=== PATIENT | female | born 1950 | race Caucasian/White ===

== ENCOUNTER 2017-07-13 12:16 | Emergency (ER) | payer MEDICAID, OTHER ==
[~2017-07-13] VITALS: Ht 149.9 cm; Wt 68.2 kg
[~2017-07-13 12:16] MED LIST: ARIP10TA8 PO; DSS100 PO; FLUO-191 PO; LEVO50 PO; METF500T4 PO; METO50 PO; OMEP20 PO
[2017-07-13] MEDS ORDERED: MIRT30 PO (12:28)
[2017-07-13] MEDS ORDERED: HYDR-4031 PO (12:28)
[2017-07-13 12:32] LABS: GLUCOSE,POINT OF CARE 124 MG/DL (70-110)
[2017-07-13] MEDS ORDERED: METOCLOPRAMIDE HCL 5 MG/ML 2 ML VIAL IVP ONE (12:45)
[2017-07-13] MEDS ORDERED: SODIUM CHLORIDE 0.9% 1,000 ML IV ONE (12:45)
[2017-07-13] MEDS ORDERED: KETOROLAC TROMETHAMINE 30 MG/ML VIAL IVP ONE (12:45)
[2017-07-13 13:05] LABS: BASOPHILS % (AUTO) 0.2 % (0.0-2.0); EOSINOPHILS % (AUTO) 1.1 % (1.0-6.0); HEMATOCRIT 34.5 % (36-46); HEMOGLOBIN 11.5 g/dL (12.0-16.0); LYMPHOCYTES # (AUTO) 1.6 K/uL (1.0-4.8); LYMPHOCYTES % (AUTO) 20.9 % (22.0-44.0); MEAN CORPUSCULAR HEMOGLOBIN 28.4 pg (26.0-34.0); MEAN CORPUSCULAR HGB CONC 33.2 G/dL (31.0-37.0); MEAN CORPUSCULAR VOLUME 85 fL (80-100); MONOCYTES # (AUTO) 0.6 K/uL (0.1-1.0); MONOCYTES % (AUTO) 8.3 % (2.0-9.0); NEUTROPHILS # (AUTO) 5.4 K/uL (1.8-7.7); NEUTROPHILS % (AUTO) 69.5 % (40.0-70.0); PLATELET COUNT (AUTO) 337 K/uL (150-450); RED BLOOD CELL COUNT(AUTO) 4.03 MIL/uL (4.00-5.20); RED CELL DISTRIBUTION WIDTH 14.6 % (11.5-14.5); WHITE BLOOD COUNT (AUTO) 7.8 K/uL (4.5-11.0)
[2017-07-13 13:14] LABS: ANION GAP 9 mmol/L (8-16); CALCIUM, TOTAL 8.9 mg/dL (8.8-10.5); CARBON DIOXIDE 26 mmol/L (22-29); CHLORIDE 106 mmol/L (98-107); CREATININE 0.83 mg/dL (0.60-1.30); GLOMERULAR FILTR. RATE CALC > 60 mL/min (>60); POTASSIUM 3.5 mmol/L (3.5-5.1); SODIUM SERUM 141 mmol/L (136-145); UREA NITROGEN, BLOOD 10 mg/dL (7-18)
[2017-07-13 13:18] LABS: ALANINE AMINOTRANSFERASE 27 U/L (12-78); ALBUMIN 3.5 g/dL (3.4-5.0); ASPARTATE AMINOTRANSFERASE 24 U/L (15-37); BILIRUBIN,TOTAL 0.3 mg/dL (0.1-1.0); TOTAL PROTEIN, SERUM 7.2 g/dL (6.4-8.2)
[2017-07-13 14:11] LABS: APPEARANCE,URINE CLOUDY (CLEAR); GLUCOSE, URINE (UA) NEGATIVE (NEGATIVE); KETONES,URINE NEGATIVE (NEGATIVE); LEUKOCYTE ESTERASE ,URINE MODERATE (NEGATIVE); OCCULT BLOOD,URINE SMALL (NEGATIVE); PH,URINE 6.5 (5.0-8.0); PROTEIN,URINE POS 1+ (NEGATIVE)
[2017-07-13 14:16] LABS: ADD UA MICROSCOPIC YES
[2017-07-13 14:19] LABS: RBC,URINE 0-2 /HPF (0-2); RENAL EPITHELIAL CELLS,URINE Rare /LPF (None Seen); SQUAMOUS EPITHELIAL CELL,UR Few /LPF (None Seen)
[2017-07-13 14:27] VITALS: BP 130/72
== END 2017-07-13 15:43 | disposition home or self-care (01) ==
LOC: EMS 12:18
DX: N39.0 Urinary tract infection, site not specified (principal); R51 Headache; E11.9 Type 2 diabetes mellitus without complications; E78.00 Pure hypercholesterolemia, unspecified
CPT/HCPCS: 36415; 80053; 80307; 81001; 82962; 85025; 87086; 96361; 96374; 96375; 99284; J1885; J2765; J7030

== ENCOUNTER 2017-07-22 20:59 | Emergency (ER) | payer OTHER ==
[~2017-07-22] VITALS: Ht 157.5 cm; Wt 77.3 kg
[~2017-07-22 20:59] MED LIST changes: -DSS100 PO; +HYDR-4031 PO; +MIRT30 PO; -OMEP20 PO
[2017-07-22 21:04] VITALS: BP 115/71
[2017-07-22 21:18] LABS: GLUCOSE,POINT OF CARE 143 MG/DL (70-110)
[2017-07-22 21:30] LABS: BASOPHILS # (AUTO) 0.01 K/uL (0.00-0.20); BASOPHILS % (AUTO) 0.2 % (0.0-2.0); EOSINOPHILS # (AUTO) 0.21 K/uL (0.00-0.70); EOSINOPHILS % (AUTO) 2.94 % (1.0-6.0); HEMATOCRIT 34.5 % (36-46); HEMOGLOBIN 11.5 g/dL (12.0-16.0); LYMPHOCYTES # (AUTO) 1.9 K/uL (1.0-4.8); LYMPHOCYTES % (AUTO) 26.9 % (22.0-44.0); MEAN CORPUSCULAR HEMOGLOBIN 28.5 pg (26.0-34.0); MEAN CORPUSCULAR HGB CONC 33.3 G/dL (31.0-37.0); MEAN CORPUSCULAR VOLUME 86 fL (80-100); MONOCYTES # (AUTO) 0.6 K/uL (0.1-1.0); MONOCYTES % (AUTO) 7.8 % (2.0-9.0); NEUTROPHILS # (AUTO) 4.5 K/uL (1.8-7.7); NEUTROPHILS % (AUTO) 62.3 % (40.0-70.0); PLATELET COUNT (AUTO) 291 K/uL (150-450); RED BLOOD CELL COUNT(AUTO) 4.02 MIL/uL (4.00-5.20); RED CELL DISTRIBUTION WIDTH 14.4 % (11.5-14.5); WHITE BLOOD COUNT (AUTO) 7.2 K/uL (4.5-11.0)
[2017-07-22 21:41] LABS: ANION GAP 9 mmol/L (8-16); CALCIUM, TOTAL 8.7 mg/dL (8.8-10.5); CARBON DIOXIDE 24 mmol/L (22-29); CHLORIDE 108 mmol/L (98-107); GLOMERULAR FILTR. RATE CALC > 60 mL/min (>60); POTASSIUM 3.5 mmol/L (3.5-5.1); SODIUM SERUM 141 mmol/L (136-145); UREA NITROGEN, BLOOD 11 mg/dL (7-18)
[2017-07-22 21:48] LABS: ALANINE AMINOTRANSFERASE 28 U/L (12-78); ALBUMIN 3.6 g/dL (3.4-5.0); ASPARTATE AMINOTRANSFERASE 26 U/L (15-37); BILIRUBIN,TOTAL 0.2 mg/dL (0.1-1.0); TOTAL PROTEIN, SERUM 7.6 g/dL (6.4-8.2)
[2017-07-22 21:55] LABS: APPEARANCE,URINE CLOUDY (CLEAR); GLUCOSE, URINE (UA) NEGATIVE (NEGATIVE); KETONES,URINE NEGATIVE (NEGATIVE); LEUKOCYTE ESTERASE ,URINE MODERATE (NEGATIVE); OCCULT BLOOD,URINE LARGE (NEGATIVE); PROTEIN,URINE POS 1+ (NEGATIVE)
[2017-07-22 22:05] LABS: ADD UA MICROSCOPIC YES
[2017-07-22 22:30] LABS: SQUAMOUS EPITHELIAL CELL,UR Rare /LPF (None Seen)
== END 2017-07-22 22:40 | disposition home or self-care (01) ==
LOC: EMS 21:01
DX: F25.9 Schizoaffective disorder, unspecified (principal); N39.0 Urinary tract infection, site not specified; G47.00 Insomnia, unspecified; F31.9 Bipolar disorder, unspecified; E11.9 Type 2 diabetes mellitus without complications; E78.00 Pure hypercholesterolemia, unspecified; F41.9 Anxiety disorder, unspecified
CPT/HCPCS: 36415; 80053; 80307; 81001; 82962; 85025; 87086; 99284; G0480

== ENCOUNTER 2018-01-12 18:57 | Emergency (ER) | payer OTHER ==
[~2018-01-12] VITALS: Ht 149.9 cm; Wt 72.7 kg
[2018-01-12 19:18] LABS: GLUCOSE,POINT OF CARE 93 MG/DL (70-110)
[2018-01-12] MEDS ORDERED: METO-558 PO (19:18)
[2018-01-12] MEDS ORDERED: PANT40TA25 PO (19:18)
[2018-01-12] MEDS ORDERED: VITAD1000 PO (19:18)
[2018-01-12] MEDS ORDERED: HYDR-4031 PO (19:18)
[2018-01-12] MEDS ORDERED: QUET200T PO (19:18)
[2018-01-12] MEDS ORDERED: DONE5TAB5 PO (19:18)
[2018-01-12 20:31] LABS: BASOPHILS % (AUTO) 1.2 % (0.0-2.0); EOSINOPHILS % (AUTO) 1.8 % (1.0-6.0); HEMATOCRIT 37.2 % (36-46); HEMOGLOBIN 12.4 g/dL (12.0-16.0); LYMPHOCYTES # (AUTO) 2.4 K/uL (1.0-4.8); LYMPHOCYTES % (AUTO) 24.4 % (22.0-44.0); MEAN CORPUSCULAR HEMOGLOBIN 28.1 pg (26.0-34.0); MEAN CORPUSCULAR HGB CONC 33.3 G/dL (31.0-37.0); MEAN CORPUSCULAR VOLUME 85 fL (80-100); MONOCYTES # (AUTO) 0.9 K/uL (0.1-1.0); MONOCYTES % (AUTO) 8.8 % (2.0-9.0); NEUTROPHILS # (AUTO) 6.3 K/uL (1.8-7.7); NEUTROPHILS % (AUTO) 63.8 % (40.0-70.0); PLATELET COUNT (AUTO) 323 K/uL (150-450); RED BLOOD CELL COUNT(AUTO) 4.39 MIL/uL (4.00-5.20); RED CELL DISTRIBUTION WIDTH 14.4 % (11.5-14.5)
[2018-01-12 20:38] LABS: ANION GAP 6 mmol/L (8-16); CALCIUM, TOTAL 9.1 mg/dL (8.8-10.5); CARBON DIOXIDE 27 mmol/L (22-29); CHLORIDE 105 mmol/L (98-107); CREATININE 0.67 mg/dL (0.60-1.30); GLOMERULAR FILTR. RATE CALC > 60 mL/min (>60); GLUCOSE,RANDOM 94 mg/dL (70-110); SODIUM SERUM 138 mmol/L (136-145); UREA NITROGEN, BLOOD 10 mg/dL (7-18)
[2018-01-12 20:42] LABS: ALANINE AMINOTRANSFERASE 34 U/L (12-78); ALBUMIN 3.8 g/dL (3.4-5.0); ALKALINE PHOSPHATASE 80 U/L (46-116); ASPARTATE AMINOTRANSFERASE 30 U/L (15-37); BILIRUBIN,TOTAL 0.4 mg/dL (0.1-1.0)
[2018-01-12] MEDS ORDERED: LORazepam 2 MG/ML VIAL IM ONE (21:15)
[2018-01-12] MEDS ORDERED: DiphenhydrAMINE HCL 50 MG/ML VIAL IM ONE (21:15)
[2018-01-12] MEDS ORDERED: HALOPERIDOL LACTATE 5 MG/ML VIAL IM ONE (21:15)
[2018-01-13 01:25] VITALS: BP 141/78
[2018-01-17] MEDS ORDERED: ARIP400S3 IM (13:48)
== END 2018-01-13 01:36 | disposition home or self-care (01) ==
LOC: MERGE 18:58 → EMS 18:58
DX: F25.9 Schizoaffective disorder, unspecified (principal); R51 Headache; F32.9 Major depressive disorder, single episode, unspecified; E11.9 Type 2 diabetes mellitus without complications; I10 Essential (primary) hypertension; Z88.0 Allergy status to penicillin
CPT/HCPCS: 36415; 80053; 82962; 85025; 96372; 99285; G0480; J1200; J1630; J2060; 99284

== ENCOUNTER 2018-02-24 10:28 | Inpatient (IN) | payer MEDICAID, OTHER ==
[~2018-02-24] VITALS: Ht 147.3 cm; Wt 71.4 kg
[~2018-02-24 10:28] MED LIST changes: -ARIP10TA8 PO; +BUSP10TA23 PO; -FLUO-191 PO; -HYDR-4031 PO; -METF500T4 PO; +METO-558 PO; -METO50 PO; +MIRT15 PO; -MIRT30 PO; +OLAN10TA22 PO; +TRAZ-147 PO; +TRAZ150 PO
[2018-02-24 10:47] LABS: GLUCOSE,POINT OF CARE 83 MG/DL (70-110)
[2018-02-24 11:22] LABS: EOSINOPHILS % (AUTO) 0.6 % (1.0-6.0); HEMATOCRIT 38.4 % (36-46); LYMPHOCYTES # (AUTO) 1.8 K/uL (1.0-4.8); MEAN CORPUSCULAR HEMOGLOBIN 28.4 pg (26.0-34.0); MEAN CORPUSCULAR HGB CONC 33.9 G/dL (31.0-37.0); MEAN CORPUSCULAR VOLUME 84 fL (80-100); MONOCYTES # (AUTO) 0.4 K/uL (0.1-1.0); MONOCYTES % (AUTO) 5.6 % (2.0-9.0); NEUTROPHILS # (AUTO) 4.5 K/uL (1.8-7.7); NEUTROPHILS % (AUTO) 65.8 % (40.0-70.0); PLATELET COUNT (AUTO) 311 K/uL (150-450); RED BLOOD CELL COUNT(AUTO) 4.59 MIL/uL (4.00-5.20); RED CELL DISTRIBUTION WIDTH 13.9 % (11.5-14.5)
[2018-02-24 11:38] LABS: AMPHET/METH SCREEN,URINE NEGATIVE (NEGATIVE); BARBITURATE SCREEN, URINE NEGATIVE (NEGATIVE); BENZODIAZEPINES SCREEN,URINE NEGATIVE (NEGATIVE); CANNABINOID SCREEN,URINE NEGATIVE (NEGATIVE); COCAINE SCREEN,URINE NEGATIVE (NEGATIVE); METHADONE SCREEN, URINE NEGATIVE (NEGATIVE); OPIATE SCREEN,URINE NEGATIVE (NEGATIVE)
[2018-02-24 11:39] LABS: PHENCYCLIDINE SCREEN,URINE NEGATIVE (NEGATIVE)
[2018-02-24 11:39] LABS: ANION GAP 6 mmol/L (8-16); CALCIUM, TOTAL 8.9 mg/dL (8.8-10.5); CARBON DIOXIDE 28 mmol/L (22-29); CHLORIDE 105 mmol/L (98-107); CREATININE 0.68 mg/dL (0.60-1.30); GLOMERULAR FILTR. RATE CALC > 60 mL/min (>60); GLUCOSE,RANDOM 85 mg/dL (70-110); POTASSIUM 4.2 mmol/L (3.5-5.1); SODIUM SERUM 139 mmol/L (136-145); UREA NITROGEN, BLOOD 12 mg/dL (7-18)
[2018-02-24 11:42] LABS: APPEARANCE,URINE CLOUDY (CLEAR); BILIRUBIN,URINE NEGATIVE (NEGATIVE); GLUCOSE, URINE (UA) NEGATIVE (NEGATIVE); KETONES,URINE NEGATIVE (NEGATIVE); LEUKOCYTE ESTERASE ,URINE SMALL (NEGATIVE); NITRATE,URINE NEGATIVE (NEGATIVE); OCCULT BLOOD,URINE LARGE (NEGATIVE); PH,URINE 6.5 (5.0-8.0); PROTEIN,URINE POS 1+ (NEGATIVE); UROBILINOGEN,URINE 0.2 mg/dL (<=1.0)
[2018-02-24 11:45] LABS: ALANINE AMINOTRANSFERASE 45 U/L (12-78); ALBUMIN 3.5 g/dL (3.4-5.0); ALKALINE PHOSPHATASE 93 U/L (46-116); ASPARTATE AMINOTRANSFERASE 39 U/L (15-37); BILIRUBIN,TOTAL 0.3 mg/dL (0.1-1.0); LIPASE 188 U/L (73-393); TOTAL PROTEIN, SERUM 7.4 g/dL (6.4-8.2)
[2018-02-24 11:47] LABS: BACTERIA,URINE Rare /HPF (None Seen); CALCIUM OXALATE CRYSTALS,UR Few /LPF (None Seen); RENAL EPITHELIAL CELLS,URINE Few /LPF (None Seen); SQUAMOUS EPITHELIAL CELL,UR Few /LPF (None Seen); TRANSITIONAL EPI CELLS,URINE Few /LPF (None Seen)
[2018-02-24] MEDS ORDERED: PROMETHAZINE HCL 25 MG TABLET PO PRN (16:45)
[2018-02-24] MEDS ORDERED: HydrOXYzine PAMOATE 50 MG CAPSULE PO PRN (16:45)
[2018-02-24] MEDS ORDERED: GuaiFENesin/D-METHORPHAN [SUGAR-FREE] 200-20MG/10 ML SYRUP UDCUP PO PRN (16:45)
[2018-02-24] MEDS ORDERED: LOPERAMIDE HCL 2 MG CAPSULE PO PRN (16:45)
[2018-02-24] MEDS ORDERED: MAGNESIUM HYDROXIDE SUSPENSION 30 ML UDCUP PO PRN (16:45)
[2018-02-24] MEDS ORDERED: MIRTAZAPINE 15 MG TABLET PO SCH (21:00)
[2018-02-24 21:35] VITALS: BP 140/85
[2018-02-24] MEDS: BusPIRone HCL 5 MG TABLET PO SCH (21:35)
[2018-02-24] MEDS: THIAMINE HCL 100 MG TABLET PO SCH (21:35)
[2018-02-24] MEDS: OLANZapine 10 MG RAPDIS TABLET PO SCH (21:35)
[2018-02-24] MEDS ORDERED: DEXTROSE 50%-WATER 25 GM/50 ML SYG IVP PRN (23:30)
[2018-02-25 05:48] LABS: GLUCOMETER DEV NAME(LOC) 3EC; GLUCOSE,POINT OF CARE 97 MG/DL (70-110)
[2018-02-25] MEDS: LEVOTHYROXINE SODIUM 50 MCG TABLET PO SCH (06:06)
[2018-02-25 06:34] LABS: BASOPHILS % (AUTO) 1.3 % (0.0-2.0); EOSINOPHILS % (AUTO) 2.2 % (1.0-6.0); HEMATOCRIT 35.3 % (36-46); HEMOGLOBIN 11.9 g/dL (12.0-16.0); LYMPHOCYTES # (AUTO) 1.7 K/uL (1.0-4.8); LYMPHOCYTES % (AUTO) 28.8 % (22.0-44.0); MEAN CORPUSCULAR HEMOGLOBIN 28.1 pg (26.0-34.0); MEAN CORPUSCULAR HGB CONC 33.7 G/dL (31.0-37.0); MEAN CORPUSCULAR VOLUME 84 fL (80-100); MONOCYTES # (AUTO) 0.4 K/uL (0.1-1.0); MONOCYTES % (AUTO) 6.5 % (2.0-9.0); NEUTROPHILS # (AUTO) 3.6 K/uL (1.8-7.7); NEUTROPHILS % (AUTO) 61.2 % (40.0-70.0); PLATELET COUNT (AUTO) 293 K/uL (150-450); RED BLOOD CELL COUNT(AUTO) 4.23 MIL/uL (4.00-5.20); RED CELL DISTRIBUTION WIDTH 13.9 % (11.5-14.5)
[2018-02-25 07:15] LABS: HEMOGLOBIN A1C 5.9 % (4.5-6.2)
[2018-02-25 07:29] LABS: ALANINE AMINOTRANSFERASE 36 U/L (12-78); ALBUMIN 3.4 g/dL (3.4-5.0); ALKALINE PHOSPHATASE 78 U/L (46-116); ANION GAP 10 mmol/L (8-16); ASPARTATE AMINOTRANSFERASE 26 U/L (15-37); BILIRUBIN,TOTAL 0.4 mg/dL (0.1-1.0); CALCIUM, TOTAL 8.6 mg/dL (8.8-10.5); CARBON DIOXIDE 25 mmol/L (22-29); CHLORIDE 106 mmol/L (98-107); CHOL/HDL RATIO 2.6 (3.9-5.7); CHOLESTEROL 121 mg/dL (131-200); CREATININE 0.76 mg/dL (0.60-1.30); FREE T4 (FREE THYROXINE) 1.16 ng/dL (0.76-1.46); GLOMERULAR FILTR. RATE CALC > 60 mL/min (>60); GLUCOSE,RANDOM 106 mg/dL (70-110); HDL CHOLESTEROL 47 mg/dL (40-60); LDL CHOL (CALC.) 53 mg/dL (0-130); POTASSIUM 3.7 mmol/L (3.5-5.1); SODIUM SERUM 141 mmol/L (136-145); THYROID STIMULATING HORMONE 2.87 uIU/mL (0.36-3.74); TOTAL PROTEIN, SERUM 7.5 g/dL (6.4-8.2); TRIGLYCERIDES 104 mg/dL (15-150); UREA NITROGEN, BLOOD 17 mg/dL (7-18)
[2018-02-25 09:29] VITALS: BP 157/73
[2018-02-25] MEDS: BusPIRone HCL 5 MG TABLET PO SCH (09:34)
[2018-02-25] MEDS: OLANZapine 5 MG RAPDIS TABLET PO PRN (09:34)
[2018-02-25] MEDS: THIAMINE HCL 100 MG TABLET PO SCH ×2 (09:34→16:26)
[2018-02-25] MEDS: MULTIVITAMINS WITH MINERALS, THERAPEUTIC TABLET PO SCH (09:34)
[2018-02-25] MEDS: FLUoxetine HCL 20 MG CAPSULE PO SCH (09:34)
[2018-02-25] MEDS: FOLIC ACID 1 MG TABLET PO SCH (09:35)
[2018-02-25] MEDS: METOPROLOL SUCCINATE 50 MG ER TABLET PO SCH ×2 (09:35→16:26)
[2018-02-25 12:02] LABS: GLUCOMETER DEV NAME(LOC) 3EI B; GLUCOSE,POINT OF CARE 76 MG/DL (70-110)
[2018-02-25] MEDS: CIPROFLOXACIN HCL 250 MG TABLET PO SCH (16:26)
[2018-02-25 16:32] LABS: GLUCOMETER DEV NAME(LOC) 3EI B; GLUCOSE,POINT OF CARE 111 MG/DL (70-110)
[2018-02-25 17:14] VITALS: BP 156/79
[2018-02-25 19:45] VITALS: BP 147/71
[2018-02-25] MEDS: ACETAMINOPHEN 325 MG TABLET PO PRN (19:50)
[2018-02-25] MEDS: OLANZapine 10 MG RAPDIS TABLET PO SCH (20:26)
[2018-02-25 20:39] LABS: GLUCOMETER DEV NAME(LOC) 3EI B; GLUCOSE,POINT OF CARE 102 MG/DL (70-110)
[2018-02-25 20:45] VITALS: BP 139/77
[2018-02-25] MEDS: MIRTAZAPINE 15 MG TABLET PO SCH (20:56)
[2018-02-26 01:00] VITALS: BP 141/59
[2018-02-26] MEDS: LORazepam 2 MG TABLET PO PRN (01:12)
[2018-02-26] MEDS: ZOLPIDEM TARTRATE 10 MG TABLET PO PRN (01:12)
[2018-02-26 05:52] LABS: GLUCOMETER DEV NAME(LOC) 3EI B; GLUCOSE,POINT OF CARE 105 MG/DL (70-110)
[2018-02-26] MEDS: LEVOTHYROXINE SODIUM 50 MCG TABLET PO SCH (06:56)
[2018-02-26] MEDS: FOLIC ACID 1 MG TABLET PO SCH (08:09)
[2018-02-26] MEDS: CIPROFLOXACIN HCL 250 MG TABLET PO SCH ×2 (08:09→16:34)
[2018-02-26] MEDS: THIAMINE HCL 100 MG TABLET PO SCH ×2 (08:09→16:34)
[2018-02-26] MEDS: FLUoxetine HCL 20 MG CAPSULE PO SCH (08:10)
[2018-02-26] MEDS: METOPROLOL SUCCINATE 50 MG ER TABLET PO SCH ×2 (08:10→16:34)
[2018-02-26] MEDS: MULTIVITAMINS WITH MINERALS, THERAPEUTIC TABLET PO SCH (08:10)
[2018-02-26 08:35] VITALS: BP 137/72
[2018-02-26] MEDS: MAG HYDROX/AL HYDROX/SIMETH ES 30 ML SUSPENSION UDCUP PO PRN (10:37)
[2018-02-26 11:33] LABS: GLUCOMETER DEV NAME(LOC) 3EI B; GLUCOSE,POINT OF CARE 110 MG/DL (70-110)
[2018-02-26 17:03] LABS: GLUCOMETER DEV NAME(LOC) 3EI B; GLUCOSE,POINT OF CARE 130 MG/DL (70-110)
[2018-02-26] MEDS: OLANZapine 10 MG RAPDIS TABLET PO SCH (20:08)
[2018-02-26] MEDS: MIRTAZAPINE 15 MG TABLET PO SCH (20:08)
[2018-02-26] MEDS: INSULIN LISPRO 100 UNITS/ML SQ PRN (21:21)
[2018-02-26 21:27] LABS: GLUCOMETER DEV NAME(LOC) 3EI B; GLUCOSE,POINT OF CARE 148 MG/DL (70-110)
[2018-02-27 00:45] VITALS: BP 144/88
[2018-02-27] MEDS: ZOLPIDEM TARTRATE 10 MG TABLET PO PRN (00:59)
[2018-02-27] MEDS: LORazepam 2 MG TABLET PO PRN (00:59)
[2018-02-27 06:18] LABS: GLUCOMETER DEV NAME(LOC) 3EI B; GLUCOSE,POINT OF CARE 110 MG/DL (70-110)
[2018-02-27] MEDS: LEVOTHYROXINE SODIUM 50 MCG TABLET PO SCH (07:02)
[2018-02-27 07:09] LABS: % IRON SATURATION 8.8 % (22-44)
[2018-02-27] MEDS: FLUoxetine HCL 20 MG CAPSULE PO SCH (08:36)
[2018-02-27] MEDS: MULTIVITAMINS WITH IRON TABLET PO SCH (08:36)
[2018-02-27] MEDS: FOLIC ACID 1 MG TABLET PO SCH (08:36)
[2018-02-27] MEDS: THIAMINE HCL 100 MG TABLET PO SCH ×2 (08:36→17:48)
[2018-02-27] MEDS: METOPROLOL SUCCINATE 50 MG ER TABLET PO SCH ×2 (08:36→17:48)
[2018-02-27 10:14] VITALS: BP 131/73
[2018-02-27 11:43] LABS: GLUCOMETER DEV NAME(LOC) 3EI B; GLUCOSE,POINT OF CARE 50 MG/DL (70-110)
[2018-02-27 17:17] LABS: GLUCOMETER DEV NAME(LOC) 3EI B; GLUCOSE,POINT OF CARE 69 MG/DL (70-110)
[2018-02-27 19:49] VITALS: BP 119/79
[2018-02-27] MEDS: MIRTAZAPINE 15 MG TABLET PO SCH (21:18)
[2018-02-27] MEDS: OLANZapine 10 MG RAPDIS TABLET PO SCH (21:18)
[2018-02-27 22:52] LABS: GLUCOMETER DEV NAME(LOC) 3EI B; GLUCOSE,POINT OF CARE 136 MG/DL (70-110)
[2018-02-28 00:40] VITALS: BP 135/76
[2018-02-28] MEDS: LORazepam 2 MG TABLET PO PRN (00:48)
[2018-02-28] MEDS: ZOLPIDEM TARTRATE 10 MG TABLET PO PRN (00:48)
[2018-02-28 05:32] LABS: GLUCOMETER DEV NAME(LOC) 3EI B; GLUCOSE,POINT OF CARE 91 MG/DL (70-110)
[2018-02-28] MEDS: LEVOTHYROXINE SODIUM 50 MCG TABLET PO SCH (06:52)
[2018-02-28] MEDS: INSULIN LISPRO 100 UNITS/ML SQ PRN (07:03)
[2018-02-28] MEDS: MULTIVITAMINS WITH IRON TABLET PO SCH (08:20)
[2018-02-28] MEDS: METOPROLOL SUCCINATE 50 MG ER TABLET PO SCH ×2 (08:20→16:19)
[2018-02-28] MEDS: FLUoxetine HCL 20 MG CAPSULE PO SCH (08:20)
[2018-02-28] MEDS: THIAMINE HCL 100 MG TABLET PO SCH ×2 (08:20→16:19)
[2018-02-28] MEDS: FOLIC ACID 1 MG TABLET PO SCH (08:21)
[2018-02-28 10:31] VITALS: BP 160/75
[2018-02-28 11:22] LABS: GLUCOMETER DEV NAME(LOC) 3EI B; GLUCOSE,POINT OF CARE 76 MG/DL (70-110)
[2018-02-28 16:28] VITALS: BP 135/73
[2018-02-28] MEDS ORDERED: OLANZapine 5 MG RAPDIS TABLET PO SCH (21:00)
[2018-02-28] MEDS: MIRTAZAPINE 15 MG TABLET PO SCH (21:40)
[2018-03-01 01:00] VITALS: BP 127/77
[2018-03-01] MEDS: ZOLPIDEM TARTRATE 10 MG TABLET PO PRN ×2 (02:54→22:03)
[2018-03-01] MEDS: OLANZapine 5 MG RAPDIS TABLET PO PRN (02:54)
[2018-03-01] MEDS: LEVOTHYROXINE SODIUM 50 MCG TABLET PO SCH (07:06)
[2018-03-01 08:00] VITALS: BP 125/70
[2018-03-01] MEDS: FOLIC ACID 1 MG TABLET PO SCH (09:48)
[2018-03-01] MEDS: FLUoxetine HCL 20 MG CAPSULE PO SCH (09:48)
[2018-03-01] MEDS: THIAMINE HCL 100 MG TABLET PO SCH ×2 (09:48→16:11)
[2018-03-01] MEDS: MULTIVITAMINS WITH IRON TABLET PO SCH (09:49)
[2018-03-01] MEDS: METOPROLOL SUCCINATE 50 MG ER TABLET PO SCH ×2 (09:49→16:11)
[2018-03-01 16:00] VITALS: BP 147/82
[2018-03-01] MEDS: OLANZapine 10 MG RAPDIS TABLET PO SCH (20:11)
[2018-03-01] MEDS: MIRTAZAPINE 15 MG TABLET PO SCH (20:11)
[2018-03-01] MEDS: LORazepam 2 MG TABLET PO PRN (22:03)
[2018-03-02] MEDS: LEVOTHYROXINE SODIUM 50 MCG TABLET PO SCH (07:00)
[2018-03-02 08:00] VITALS: BP 169/83
[2018-03-02] MEDS: LORazepam 2 MG TABLET PO PRN (08:21)
[2018-03-02] MEDS: METOPROLOL SUCCINATE 50 MG ER TABLET PO SCH ×2 (08:21→16:40)
[2018-03-02] MEDS: FLUoxetine HCL 20 MG CAPSULE PO SCH (08:21)
[2018-03-02] MEDS: MULTIVITAMINS WITH IRON TABLET PO SCH (08:21)
[2018-03-02] MEDS: THIAMINE HCL 100 MG TABLET PO SCH ×2 (08:21→16:39)
[2018-03-02] MEDS: FOLIC ACID 1 MG TABLET PO SCH (08:21)
[2018-03-02 19:39] VITALS: BP 128/91
[2018-03-02] MEDS: MIRTAZAPINE 30 MG TABLET PO SCH (21:45)
[2018-03-02] MEDS: OLANZapine 10 MG RAPDIS TABLET PO SCH (21:46)
[2018-03-03 00:15] VITALS: BP 153/75
[2018-03-03 02:40] VITALS: BP 168/77
[2018-03-03] MEDS: ACETAMINOPHEN 325 MG TABLET PO PRN (02:45)
[2018-03-03] MEDS: ZOLPIDEM TARTRATE 10 MG TABLET PO PRN ×2 (02:46→21:11)
[2018-03-03] MEDS: LEVOTHYROXINE SODIUM 50 MCG TABLET PO SCH (06:52)
[2018-03-03 08:00] VITALS: BP 124/67
[2018-03-03] MEDS: METOPROLOL SUCCINATE 50 MG ER TABLET PO SCH ×2 (08:58→17:04)
[2018-03-03] MEDS: FLUoxetine HCL 20 MG CAPSULE PO SCH (08:58)
[2018-03-03] MEDS: MULTIVITAMINS WITH IRON TABLET PO SCH (08:58)
[2018-03-03] MEDS: THIAMINE HCL 100 MG TABLET PO SCH ×2 (08:58→17:04)
[2018-03-03] MEDS: FOLIC ACID 1 MG TABLET PO SCH (08:58)
[2018-03-03] MEDS ORDERED: OLAN10TA22 PO (16:38)
[2018-03-03] MEDS ORDERED: FLUO-191 PO (16:38)
[2018-03-03] MEDS ORDERED: MIRT30 PO (16:38)
[2018-03-03 17:04] VITALS: BP 141/64
[2018-03-03] MEDS: OLANZapine 10 MG RAPDIS TABLET PO SCH (20:52)
[2018-03-03] MEDS: MIRTAZAPINE 30 MG TABLET PO SCH (20:52)
[2018-03-04 01:30] VITALS: BP 167/93
[2018-03-04] MEDS: LORazepam 2 MG TABLET PO PRN (01:40)
[2018-03-04] MEDS: LEVOTHYROXINE SODIUM 50 MCG TABLET PO SCH (06:53)
[2018-03-04] MEDS: MULTIVITAMINS WITH IRON TABLET PO SCH (08:28)
[2018-03-04] MEDS: THIAMINE HCL 100 MG TABLET PO SCH (08:28)
[2018-03-04] MEDS: FLUoxetine HCL 20 MG CAPSULE PO SCH (08:28)
[2018-03-04] MEDS: FOLIC ACID 1 MG TABLET PO SCH (08:28)
[2018-03-04] MEDS: METOPROLOL SUCCINATE 50 MG ER TABLET PO SCH (08:28)
[2018-03-04] MEDS: MAG HYDROX/AL HYDROX/SIMETH ES 30 ML SUSPENSION UDCUP PO PRN (08:29)
[2018-03-04 08:35] VITALS: BP 171/69
== END 2018-03-04 15:00 | disposition home or self-care (01) | DRG 750 ==
LOC: EMS 10:29 → 3EI 21:07
PROVIDERS: ADMIT Psychiatry & Neurology Psychiatry; ATTEND Psychiatry & Neurology Psychiatry
DX: F25.1 Schizoaffective disorder, depressive type (principal); R56.9 Unspecified convulsions; E11.9 Type 2 diabetes mellitus without complications; I10 Essential (primary) hypertension; F32.9 Major depressive disorder, single episode, unspecified; D64.9 Anemia, unspecified; N13.2 Hydronephrosis with renal and ureteral calculous obstruction; E03.9 Hypothyroidism, unspecified; K21.9 Gastro-esophageal reflux disease without esophagitis; K59.00 Constipation, unspecified; G47.00 Insomnia, unspecified; E66.9 Obesity, unspecified; F12.90 Cannabis use, unspecified, uncomplicated; E78.00 Pure hypercholesterolemia, unspecified; Z65.3 Problems related to other legal circumstances; Z88.0 Allergy status to penicillin; Z91.14 Patient's other noncompliance with medication regimen; Z91.19 Patient's noncompliance with other medical treatment and regimen; Z79.899 Other long term (current) drug therapy; Z68.33 Body mass index [BMI] 33.0-33.9, adult
CPT/HCPCS: 74022; 74176; 83036; 83540; 83550; 84439; 84443; 86592; 87081; 87086; 93005; 99285; G0480

== ENCOUNTER 2018-07-24 21:41 | Emergency (ER) | payer MEDICAID, OTHER ==
[~2018-07-24] VITALS: Ht 162.6 cm; Wt 75.0 kg
[~2018-07-24 21:41] MED LIST changes: -BUSP10TA23 PO; +FLUO-191 PO; -MIRT15 PO; +MIRT30 PO; -TRAZ-147 PO; -TRAZ150 PO
[2018-07-24 21:57] VITALS: BP 156/78
[2018-07-24] MEDS ORDERED: diabetes medication PO (21:58)
[2018-07-24] MEDS ORDERED: [UNRECOGNIZED DRUG - REMARK] PO (21:58)
[2018-07-24] MEDS ORDERED: HALO50VI4 IM (21:58)
[2018-07-24] MEDS ORDERED: antihypertensive PO (21:58)
[2018-07-24] MEDS ORDERED: LORazepam 2 MG TABLET PO ONE (22:00)
[2018-07-24] MEDS ORDERED: OLANZapine 5 MG TABLET PO ONE (22:00)
[2018-07-24] MEDS ORDERED: DiphenhydrAMINE HCL 25 MG CAPSULE PO ONE (22:00)
[2018-07-24 22:15] LABS: GLUCOSE,POINT OF CARE 108 MG/DL (70-110)
== END 2018-07-24 22:39 | disposition home or self-care (01) ==
LOC: EMS 21:43
DX: F41.9 Anxiety disorder, unspecified (principal); F25.9 Schizoaffective disorder, unspecified; G47.00 Insomnia, unspecified; F31.9 Bipolar disorder, unspecified; E11.9 Type 2 diabetes mellitus without complications; E78.00 Pure hypercholesterolemia, unspecified; Z88.0 Allergy status to penicillin
CPT/HCPCS: 99284

== ENCOUNTER 2019-03-31 00:02 | Emergency (ER) | payer OTHER ==
[~2019-03-31] VITALS: Ht 162.6 cm; Wt 75.0 kg
[~2019-03-31 00:02] MED LIST changes: -FLUO-191 PO; +HALO50VI4 IM; -LEVO50 PO; -METO-558 PO; -MIRT30 PO; -OLAN10TA22 PO; +[UNRECOGNIZED DRUG - REMARK] PO; +antihypertensive PO; +diabetes medication PO
[2019-03-31] MEDS ORDERED: KETOROLAC TROMETHAMINE 60 MG/2 ML VIAL IM ONE (01:30)
[2019-03-31] MEDS ORDERED: ACETAMINOPHEN 500 MG TABLET PO ONE (01:30)
[2019-03-31 02:00] LABS: BASOPHILS % (AUTO) 1.2 % (0.0-2.0); EOSINOPHILS % (AUTO) 3.1 % (1.0-6.0); HEMATOCRIT 34.5 % (36-46); HEMOGLOBIN 11.3 g/dL (12.0-16.0); LYMPHOCYTES % (AUTO) 29.8 % (22.0-44.0); MEAN CORPUSCULAR HEMOGLOBIN 27.5 pg (26.0-34.0); MEAN CORPUSCULAR HGB CONC 32.7 G/dL (31.0-37.0); MEAN CORPUSCULAR VOLUME 84 fL (80-100); MONOCYTES # (AUTO) 0.6 K/uL (0.1-1.0); MONOCYTES % (AUTO) 9.1 % (2.0-9.0); NEUTROPHILS # (AUTO) 3.8 K/uL (1.8-7.7); NEUTROPHILS % (AUTO) 56.8 % (40.0-70.0); PLATELET COUNT (AUTO) 325 K/uL (150-450); RED CELL DISTRIBUTION WIDTH 14.2 % (11.5-14.5)
[2019-03-31 02:25] LABS: ANION GAP 10 mmol/L (8-16); CARBON DIOXIDE 23 mmol/L (22-29); CHLORIDE 103 mmol/L (98-107); CREATININE 0.74 mg/dL (0.60-1.30); GLOMERULAR FILTR. RATE CALC > 60 mL/min (>60); GLUCOSE,RANDOM 113 mg/dL (70-110); POTASSIUM 4.3 mmol/L (3.5-5.1); SODIUM SERUM 136 mmol/L (136-145); UREA NITROGEN, BLOOD 18 mg/dL (7-18)
[2019-03-31 02:29] LABS: ALANINE AMINOTRANSFERASE 21 U/L (12-78); ALBUMIN 3.5 g/dL (3.4-5.0); ALKALINE PHOSPHATASE 83 U/L (46-116); ASPARTATE AMINOTRANSFERASE 24 U/L (15-37); BILIRUBIN,TOTAL 0.2 mg/dL (0.1-1.0); TOTAL PROTEIN, SERUM 7.5 g/dL (6.4-8.2)
[2019-03-31 03:13] LABS: AMPHET/METH SCREEN,URINE NEGATIVE (NEGATIVE); BARBITURATE SCREEN, URINE NEGATIVE (NEGATIVE); BENZODIAZEPINES SCREEN,URINE NEGATIVE (NEGATIVE); CANNABINOID SCREEN,URINE NEGATIVE (NEGATIVE); COCAINE SCREEN,URINE NEGATIVE (NEGATIVE); METHADONE SCREEN, URINE NEGATIVE (NEGATIVE); OPIATE SCREEN,URINE NEGATIVE (NEGATIVE); PHENCYCLIDINE SCREEN,URINE NEGATIVE (NEGATIVE)
[2019-03-31 03:47] VITALS: BP 158/79
== END 2019-03-31 04:31 | disposition home or self-care (01) ==
LOC: EMS 00:16
DX: G89.29 Other chronic pain (principal); M54.5 Low back pain; M48.56XA Collapsed vertebra, not elsewhere classified, lumbar region, initial encounter for fracture; F20.0 Paranoid schizophrenia; E11.9 Type 2 diabetes mellitus without complications; E78.00 Pure hypercholesterolemia, unspecified; F41.9 Anxiety disorder, unspecified; F31.9 Bipolar disorder, unspecified; Z88.0 Allergy status to penicillin; Z79.899 Other long term (current) drug therapy
CPT/HCPCS: 36415; 72100; 72170; 73502; 80053; 80307; 82962; 85025; 96372; 99284; G0480; J1885

== ENCOUNTER 2019-10-04 10:53 | Inpatient (IN) | payer MEDICAID, OTHER ==
[~2019-10-04] VITALS: Ht 157.5 cm; Wt 66.4 kg
[2019-10-04 12:12] LABS: BASOPHILS % (AUTO) 0.9 % (0.0-2.0); EOSINOPHILS % (AUTO) 0.9 % (1.0-6.0); HEMATOCRIT 34.3 % (36-46); HEMOGLOBIN 11.2 g/dL (12.0-16.0); LYMPHOCYTES # (AUTO) 1.6 K/uL (1.0-4.8); LYMPHOCYTES % (AUTO) 19.9 % (22.0-44.0); MEAN CORPUSCULAR HEMOGLOBIN 27.1 pg (26.0-34.0); MEAN CORPUSCULAR HGB CONC 32.5 G/dL (31.0-37.0); MEAN CORPUSCULAR VOLUME 83 fL (80-100); MONOCYTES # (AUTO) 0.6 K/uL (0.1-1.0); MONOCYTES % (AUTO) 7.6 % (2.0-9.0); NEUTROPHILS # (AUTO) 5.8 K/uL (1.8-7.7); NEUTROPHILS % (AUTO) 70.7 % (40.0-70.0); PLATELET COUNT (AUTO) 346 K/uL (150-450); RED BLOOD CELL COUNT(AUTO) 4.12 MIL/uL (4.00-5.20); RED CELL DISTRIBUTION WIDTH 13.8 % (11.5-14.5)
[2019-10-04 12:25] LABS: ANION GAP 11 mmol/L (8-16); CALCIUM, TOTAL 9.2 mg/dL (8.8-10.5); CARBON DIOXIDE 25 mmol/L (22-29); CHLORIDE 103 mmol/L (98-107); CREATININE 0.71 mg/dL (0.60-1.30); GLOMERULAR FILTR. RATE CALC > 60 mL/min (>60); GLUCOSE,RANDOM 90 mg/dL (70-110); POTASSIUM 3.8 mmol/L (3.5-5.1); SODIUM SERUM 139 mmol/L (136-145); UREA NITROGEN, BLOOD 11 mg/dL (7-18)
[2019-10-04 12:31] LABS: ALANINE AMINOTRANSFERASE 24 U/L (12-78); ALBUMIN 3.9 g/dL (3.4-5.0); ALKALINE PHOSPHATASE 75 U/L (46-116); ASPARTATE AMINOTRANSFERASE 26 U/L (15-37); BILIRUBIN,TOTAL 0.4 mg/dL (0.1-1.0); TOTAL PROTEIN, SERUM 8.1 g/dL (6.4-8.2)
[2019-10-04] MEDS ORDERED: LORazepam 2 MG TABLET PO PRN (14:00)
[2019-10-04] MEDS ORDERED: HALOPERIDOL 5 MG TABLET PO PRN (14:00)
[2019-10-04] MEDS ORDERED: ZOLPIDEM TARTRATE 10 MG TABLET PO PRN (14:00)
[2019-10-04] MEDS ORDERED: HYDR-4031 PO (14:22)
[2019-10-04] MEDS ORDERED: TAMS-13 PO (14:22)
[2019-10-04 18:11] VITALS: BP 163/83
[2019-10-04] MEDS ORDERED: DEXTROSE 50%-WATER 25 GM/50 ML SYRINGE IVP PRN (19:15)
[2019-10-04] MEDS ORDERED: INFLUENZA VIRUS VACCINE QVS 2019-20 (3YR+)/PF 60 MCG/0.5 ML SYRINGE IM ONE ×2 (19:30)
[2019-10-04] MEDS ORDERED: PNEUMOCOCCAL VACCINE POLYVALENT 0.5 ML VIAL [PPSV23] IM ONE ×2 (19:30)
[2019-10-04] MEDS: OLANZapine 7.5 MG TABLET PO SCH (20:39)
[2019-10-05 05:43] LABS: GLUCOMETER DEV NAME(LOC) 3EX.; GLUCOSE,POINT OF CARE 93 MG/DL (70-110)
[2019-10-05] MEDS: LEVOTHYROXINE SODIUM 50 MCG TABLET PO SCH (06:55)
[2019-10-05] MEDS: INSULIN LISPRO 100 UNITS/ML SQ PRN ×2 (07:00→17:25)
[2019-10-05 07:46] LABS: CHOL/HDL RATIO 2.9 (3.9-5.7); FREE T4 (FREE THYROXINE) 1.2 ng/dL (0.76-1.46); THYROID STIMULATING HORMONE 3.33 uIU/mL (0.36-3.74)
[2019-10-05] MEDS ORDERED: ONDANSETRON HCL 4 MG TABLET PO PRN (08:30)
[2019-10-05] MEDS ORDERED: BENZOCAINE/MENTHOL LOZENGE MM PRN (08:30)
[2019-10-05] MEDS ORDERED: DOCUSATE SODIUM 100 MG CAPSULE PO PRN (08:30)
[2019-10-05] MEDS ORDERED: ALBUTEROL SULFATE HFA 90 MCG/PUFF 8 GM INHALER IH PRN (08:30)
[2019-10-05] MEDS ORDERED: CloNIDine HCL 0.1 MG TABLET PO PRN (08:30)
[2019-10-05] MEDS ORDERED: OMEPRAZOLE 20 MG CAPSULE PO PRN (08:30)
[2019-10-05] MEDS ORDERED: LOPERAMIDE HCL 2 MG CAPSULE PO PRN (08:30)
[2019-10-05] MEDS ORDERED: BACITRACIN 28.4 GM OINTMENT TP PRN (08:30)
[2019-10-05] MEDS ORDERED: MAG HYDROX/AL HYDROX/SIMETH ES 30 ML SUSPENSION UDCUP PO PRN (08:30)
[2019-10-05] MEDS ORDERED: ACETAMINOPHEN 325 MG TABLET PO PRN (08:30)
[2019-10-05] MEDS ORDERED: MAGNESIUM HYDROXIDE SUSPENSION 30 ML UDCUP PO PRN (08:30)
[2019-10-05] MEDS ORDERED: PETROLATUM,WHITE 28 GM JELLY TP PRN (08:30)
[2019-10-05] MEDS ORDERED: METOPROLOL SUCCINATE 50 MG ER TABLET PO SCH (09:00)
[2019-10-05 09:08] VITALS: BP 108/72
[2019-10-05] MEDS: FLUoxetine HCL 20 MG CAPSULE PO SCH (09:49)
[2019-10-05] MEDS: METOPROLOL TARTRATE 50 MG TABLET PO SCH ×2 (09:50→17:09)
[2019-10-05 17:30] LABS: GLUCOMETER DEV NAME(LOC) 3EX.; GLUCOSE,POINT OF CARE 129 MG/DL (70-110)
[2019-10-05 18:34] VITALS: BP 120/60
[2019-10-05] MEDS: OLANZapine 7.5 MG TABLET PO SCH (20:48)
[2019-10-06] MEDS: IBUPROFEN 600 MG TABLET PO PRN (03:55)
[2019-10-06 05:42] LABS: GLUCOMETER DEV NAME(LOC) 3EX.; GLUCOSE,POINT OF CARE 101 MG/DL (70-110)
[2019-10-06] MEDS: LEVOTHYROXINE SODIUM 50 MCG TABLET PO SCH (06:35)
[2019-10-06] MEDS: INSULIN LISPRO 100 UNITS/ML SQ PRN (06:35)
[2019-10-06 09:00] VITALS: BP 153/83
[2019-10-06] MEDS: FLUoxetine HCL 20 MG CAPSULE PO SCH (09:05)
[2019-10-06] MEDS: METOPROLOL TARTRATE 50 MG TABLET PO SCH ×2 (09:06→16:52)
[2019-10-06 09:14] VITALS: BP 153/83
[2019-10-06 17:09] LABS: GLUCOMETER DEV NAME(LOC) 3EX.; GLUCOSE,POINT OF CARE 115 MG/DL (70-110)
[2019-10-06 17:19] VITALS: BP 133/69
[2019-10-06] MEDS: OLANZapine 7.5 MG TABLET PO SCH (20:31)
[2019-10-07] MEDS: IBUPROFEN 600 MG TABLET PO PRN (04:16)
[2019-10-07 05:27] LABS: GLUCOMETER DEV NAME(LOC) 3EX.; GLUCOSE,POINT OF CARE 91 MG/DL (70-110)
[2019-10-07] MEDS: LEVOTHYROXINE SODIUM 50 MCG TABLET PO SCH (06:49)
[2019-10-07] MEDS: INSULIN LISPRO 100 UNITS/ML SQ PRN (07:03)
[2019-10-07] MEDS: METOPROLOL TARTRATE 50 MG TABLET PO SCH (08:15)
[2019-10-07] MEDS: FLUoxetine HCL 20 MG CAPSULE PO SCH (08:15)
[2019-10-07 09:45] VITALS: BP 161/74
[2019-10-07] MEDS ORDERED: FLUO-191 PO (14:13)
[2019-10-07] MEDS ORDERED: OLAN7.5T2 PO (14:13)
[2019-10-07] MEDS ORDERED: LEVO50TA11 PO (14:15)
[2019-10-07] MEDS ORDERED: METO50 PO (14:15)
== END 2019-10-07 15:00 | disposition home or self-care (01) | DRG 881 ==
LOC: EMS 10:55 → 3EI 16:55
PROVIDERS: ADMIT Psychiatry & Neurology Psychiatry; ATTEND Psychiatry & Neurology Psychiatry
DX: F32.9 Major depressive disorder, single episode, unspecified (principal); R45.851 Suicidal ideations; E11.9 Type 2 diabetes mellitus without complications; E78.00 Pure hypercholesterolemia, unspecified; G47.00 Insomnia, unspecified; F17.200 Nicotine dependence, unspecified, uncomplicated; K59.00 Constipation, unspecified; E78.5 Hyperlipidemia, unspecified; G40.909 Epilepsy, unspecified, not intractable, without status epilepticus; F20.9 Schizophrenia, unspecified; I10 Essential (primary) hypertension; F41.9 Anxiety disorder, unspecified; Z88.0 Allergy status to penicillin; Z79.899 Other long term (current) drug therapy; Z71.6 Tobacco abuse counseling
CPT/HCPCS: 84439; 84443; G0480

== ENCOUNTER 2021-08-20 02:40 | Emergency (ER) | payer MEDICARE, OTHER ==
[~2021-08-20] VITALS: Ht 152.4 cm; Wt 75.0 kg
[~2021-08-20 02:40] MED LIST changes: +FLUO-191 PO; -HALO50VI4 IM; +LEVO50TA11 PO; +METO50 PO; +OLAN7.5T22 PO; -[UNRECOGNIZED DRUG - REMARK] PO; -antihypertensive PO; -diabetes medication PO
[2021-08-20] MEDS ORDERED: KETOROLAC TROMETHAMINE 30 MG/ML VIAL IM ONE (03:00)
[2021-08-20] MEDS ORDERED: LORazepam 2 MG TABLET PO ONE (03:00)
[2021-08-20 03:46] VITALS: BP 140/85
== END 2021-08-20 03:47 | disposition home or self-care (01) ==
LOC: EMS 02:41
DX: G89.29 Other chronic pain (principal); M54.50 Low back pain, unspecified; G47.00 Insomnia, unspecified; F41.9 Anxiety disorder, unspecified; F32.9 Major depressive disorder, single episode, unspecified; E11.9 Type 2 diabetes mellitus without complications; E78.00 Pure hypercholesterolemia, unspecified; F20.9 Schizophrenia, unspecified; Z88.0 Allergy status to penicillin
CPT/HCPCS: 96372; 99283; J1885

== ENCOUNTER 2021-10-09 05:12 | Emergency (ER) | payer MEDICARE, OTHER ==
[~2021-10-09] VITALS: Ht 152.4 cm; Wt 75.0 kg
[2021-10-09 05:33] VITALS: BP 155/74
[2021-10-09] MEDS ORDERED: LOSA25TA21 PO (05:33)
[2021-10-09] MEDS ORDERED: BENZ0.5T44 PO (05:33)
[2021-10-09] MEDS ORDERED: MIRT30 PO (05:33)
[2021-10-09] MEDS ORDERED: GABA-1181 PO (05:33)
[2021-10-09] MEDS ORDERED: METF-1211 PO (05:33)
[2021-10-09] MEDS ORDERED: PANT-31 PO (05:33)
[2021-10-09] MEDS: LORazepam 2 MG/ML VIAL IM ONE ×2 (06:32→06:36)
[2021-10-09] MEDS ORDERED: LORazepam 2 MG TABLET PO ONE (07:00)
== END 2021-10-09 07:30 | disposition home or self-care (01) ==
LOC: EMS 05:14
DX: G47.00 Insomnia, unspecified (principal); F25.9 Schizoaffective disorder, unspecified; F41.9 Anxiety disorder, unspecified; F31.9 Bipolar disorder, unspecified; Z88.0 Allergy status to penicillin; Z79.899 Other long term (current) drug therapy
CPT/HCPCS: 82962; 99283; J2060

== ENCOUNTER 2022-01-27 22:51 | Emergency (ER) | payer MEDICARE, OTHER ==
[~2022-01-27] VITALS: Ht 149.9 cm; Wt 68.2 kg
[~2022-01-27 22:51] MED LIST changes: +BENZ0.5T49 PO; -FLUO-191 PO; +GABA-1181 PO; +LOSA-381 PO; +METF-1211 PO; +MIRT30 PO; -OLAN7.5T22 PO; +PANT-31 PO
[2022-01-28] MEDS ORDERED: IBUPROFEN 600 MG TABLET PO ONE
[2022-01-28] MEDS ORDERED: MELA1TAB52 PO (00:51)
[2022-01-28] MEDS ORDERED: IBUP-2070 PO (00:51)
[2022-01-28 01:01] VITALS: BP 157/85
== END 2022-01-28 01:01 | disposition home or self-care (01) ==
LOC: EMS 22:53
DX: G47.00 Insomnia, unspecified (principal); F41.9 Anxiety disorder, unspecified; M79.604 Pain in right leg; F31.9 Bipolar disorder, unspecified; E11.9 Type 2 diabetes mellitus without complications; E78.00 Pure hypercholesterolemia, unspecified; F20.9 Schizophrenia, unspecified; Z88.0 Allergy status to penicillin; Z79.84 Long term (current) use of oral hypoglycemic drugs
CPT/HCPCS: 99282; Z7502; Z7610